=== PATIENT | female | born 1965 | race Caucasian/White ===

== ENCOUNTER 2025-06-05 16:58 | Emergency (ER) | payer BC ==
[~2025-06-05] VITALS: Ht 157.5 cm; Wt 117.4 kg
[2025-06-05 17:02] VITALS: BP 167/77; PULSE 77; RESP 16; TEMP 99.7; O2SAT 95
[2025-06-05] MEDS ORDERED: ALBU8HFA INH (17:09)
--- NOTE | 2025-06-05 17:09 | Physician Documentation ---
History of Present Illness ~ Chief Complaint: Cold, cough & congestion Stated Complaint: CONGESTION Time Seen by MD: 17:25 OK to notify your PCP?: Yes Source: patient Mode of Arrival: POV Exam Limitations: no limitations HPI Reports having cough, body aches, congestion and fevers for the past 3 days. She believes it is likely a viral thing but she wants to make sure that she is not getting pneumonia. She has not taken any medication prior to arrival for fevers. She feels that there is some congestion in her chest and she is unable to cough it up because it feels stuck. She does endorse having some shortness of breath with the exertion. Denies any chest pain Medication Reconciliation Allergies: Coded Allergies: No Known Allergies (Unverified , 06/05/25) Scheduled PRN albuterol inhaler (Pro-Air Inhaler), 2 PUFFS INH Q4HPRN PRN for wheezing Past Medical History Past Medical History: No Pertinent History Review of Systems All Other Systems at this time: Reviewed and Negative Physical Exam Vital Signs: RN Vital Signs have been reviewed: Yes, Temperature: 99.7, Source: Oral, Heart Rate: 77, Respiratory Rate: 16, BP: 167/77, Pulse Oximetry: 95, Weight: 117.400 Oxygen Flow Rate: 0 Pulse Oximetry Reflects: adequate oxygenation Physical Exam General: Alert, no apparent distress. HEENT: PERRL, EOMI, no injection, moist mucous membranes. TM clear . Trace posterior pharynx erythema, no exudates. Sinuses nontender bilaterally Neck: Full range of motion. Respiratory: Lungs clear, no respiratory distress. No wheezes or crackles heard. Chest: No accessory muscle use. Cardiovascular: Regular rate and rhythm, no murmurs. Gastrointestinal: Soft, nontender, nondistended. Bowels sounds present. Extremities: Normal range of motion, no deformity. Neurologic: Oriented x4. Psychiatric: Normal mood and affect. Skin: Normal color, warm and dry. No edema, no ecchymosis. Progress Results/Orders Reviewed/noted all lab results: Yes Results/Orders Vital Signs 06/05/25 17:02 Temp 99.7 Pulse 77 Resp 16 B/P (MAP) 167/77 Pulse Ox 95 O2 Flow Rate 0 Medical Decision Making Additional information obtaine: old records Findings Physical exam is unremarkable. Vital signs are stable. We discussed that this is likely a viral illness and there was no indication for antibiotics at this time. Due to her shortness of breath with exertion, I have prescribed her an inhaler that she can use as needed for her symptoms. Differential Dx:Considerations: Include: Allergic rhinitis, Influenza, Otitis media, Pneumonia, Pnuemonitis, Sinusitis Departure Disposition: HOME / SELF CARE / HOMELESS Impression: Primary Impression: Cough Condition: Stable Discharge Instructions: Cough, Adult Additional Instructions: As discussed you have a viral illness. Unfortunately there are no specific medications we can give you to make the illness and faster. Antibiotics do not work for viral illnesses. However, you can take acetaminophen or ibuprofen to help with fevers and pain. Stay well hydrated and rested. Return to the emergency department if your fevers and chills continue to worsen after 5 days, if you develop worsening cough with thick sputum, are unable to stay hydrated, or have any new or concerning concerning symptoms. Contact your primary care provider in the next 2-3 days for re-evaluation and to make sure your symptoms are improving. Referrals: NO PRIMARY CARE PROVIDER (PCP) Prescriptions albuterol inhaler (Pro-Air Inhaler) 8.5 Gm Inhaler 2 PUFFS INH Q4HPRN PRN for wheezing for 30 Days, #18 GM Prov: TASNEEM RUIZ 06/05/25 Education Educated: Patient Educated regarding: diagnosis, treatment, prognosis, need for follow up Additional Comment Medical Screen Exam This patient recieved a medical screening examination. After reviewing the individual's medical complaints with presenting symptoms and performing an appropriate physical examination, it was determined that no immediate life-threatening emergency medical condition is present. This individual is also not a women having contractions. Signature Scribe Signature: . Attestation: Scribed for Emergency,Department by Tasneem Cespedes NP . 06/05/25 17:27 Parts of this note were created using [employer] voice recognition software program. While efforts were made to correct any mistakes made by this voice recognition software program, nonsensical phrases may remain in this note. In addition, there may be errors and syntax, grammar, content and spelling. TASNEEM RUIZ Jun 05, 2025 17:09
== END 2025-06-05 17:42 | disposition home or self-care (01) ==
LOC: ER 16:59
DX: R05.9 Cough, unspecified (principal); R50.9 Fever, unspecified; R68.89 Other general symptoms and signs
CPT/HCPCS: 99283